=== PATIENT | male | born 1985 | race Caucasian/White ===

== ENCOUNTER 2025-02-23 08:30 | Outpatient (CLI) | payer BC | END 2025-02-23 08:31 | disposition home or self-care (01) | LOC: SCSMRI 08:30 | PROVIDERS: ATTEND Family Medicine Sports Medicine | DX: S83.241A Other tear of medial meniscus, current injury, right knee, initial encounter (principal); S83.251A Bucket-handle tear of lateral meniscus, current injury, right knee, initial encounter ==